=== PATIENT | male | born 1975 | race Caucasian/White ===

== ENCOUNTER 2016-11-24 07:30 | Observation (INO) | payer BC ==
[2016-11-24 07:54] VITALS: BMI 29.8
--- NOTE | 2016-11-24 08:41 | DR.GENAD ---
HPI - PCP Primary Care Physician: KAMLA - HPI Comment HPI Comment: PATIENT HAVE LEFT INGUINAL HERNIA FOR 6 MONTHS. PATIENT HAVE HAD PAIN FROM IT ON AND OFF. PAST ONE DAY, PERSISTENT PAIN. PAIN WORSE THIS AM. NAUSEA PRESENT BUT NO VOMITING, FEVER OR DYSURIA.THE HERNIA IS NOT GOING BACK IN. - Complaint/Symptoms Chief Complaint Doctors Comments: LEFT LOWER ABDOMINAL AND GROIN PAIN TIMES ONE DAY. Chief Complaint:: POSSIBLE HERNIA IN HIS LOWER LEFT ABD AREA. HAS BEEN THERE FOR 5 MONTHS HE HAS A APPOINTMENT WITH HIS FAMILY DOCTOR THIS MORNING. - Nurses notes reviewed Nurses Notes Review: Yes - Source History Provided: Patient - Mode of Arrival Mode of Arrival: Ambulatory - Timing Onset of Chief Complaint: 06/27/16 Came on: Gradually - Duration Duration: Constant Duration: Weeks - Severity Severity: Moderate PMH - PMH Past Medical History: Yes Past Medical History: Hypertension Past Surgical History: No - Family History History of Family Medical Conditions: No - Social History Does patient currently use any type of tobacco product: No Have you used tobacco products in the last 12 months: No Type of Tobacco Use: None Does any household member use tobacco: No Alcohol Use: Rarely Do you use any recreational Drugs:: No Lives With: Family Lives Where: Home - infectious screening In the last 2 months have you had wt loss of >10#?: NO Have you had fever, night sweats or hemotysis?: No Have you traveled outside the country in the last 6 months?: No Isolation: Standard ROS - Review of Systems Constitutional: No Symptoms Reported Eyes: No Symptoms Reported ENTM: No Symptoms Reported Respiratoy: No Symptoms Reported Cardiovascular: No Symptoms Reported Gastrointestinal/Abdominal: Abdominal Pain Neurological: No Symptoms Reported Musculoskeletal: No Symptoms Reported Integumentary: No Symptoms Reported Hematologic/Lymphatic: No Symptoms Reported Endocrine: No Symptoms Reported All Other Systems: Reviewed and Negative PE - Vital Signs Vitals: Temperature 98.6 F Pulse Rate 82 Respiratory Rate 16 Blood Pressure 147/90 O2 Sat by Pulse Oximetry 100 - General Limitations: No Limitations General Appearance: Alert - Head Head Exam: Normal Inspection - Eyes Eye exam: Normal Appearance - ENT ENT Exam: Normal External Ear Exam External Ear Exam: Normal External Inspection TM/Canal Exam: Bilateral Normal Nose Exam: Normal Nose Exam Mouth Exam: Normal Inspection Throat Exam: Normal Inspection - Neck Neck Exam: Trachea Midline - Chest Chest Inspection: Symmetric Chest Wall Rise - Respiratory Respiratory Exam: Normal Lung Sounds Bilat Respiratory Exam: Bilateral Clear to Auscultation - Cardiovascular Cardiovascular Exam: Regular Rate, Normal Rhythm, Normal Heart Sounds - Abdominal Exam Abdominal Exam: Normal Bowel Sounds, Soft, Tenderness Abdominal Tenderness: RLQ, Moderate - Extremities Extremities Exam: Normal Inspection - Back Back Exam: Normal Inspection - Neurologic Neurological Exam: Alert, Oriented X3 - Psychiatric Psychiatric Exam: Normal Affect, Normal Mood - Skin Skin Exam: Normal Color MDM - Additional Information Additional Information Obtained From: Family - Differential Diagnosis Differential Diagnosis: INCARCERATED LT INGUINAL HERNIA, TRANGULATED LT INGUINAL HERNIA, ABD PAIN Course - Treatment Treatment: SEE ORDERS. NS AND IV PAIN MED IN ED. - Consultation Consultation Comments: DISCUSS PATIENT WITH DR. BORJA SURGEON. - Education/Counseling Education/Counseling: Patient, Family, Education Educated On: Treatment, Diagnosis ROR - Labs Reviewed Laboratory Results Reviewed?: Yes Result Diagrams: 11/24/16 08:35 11/24/16 08:35 Laboratory: WBC 6.2 X10^3/uL (3.6-10.0) 11/24/16 08:35 RBC 4.76 X10^6/uL (4.7-6.0) 11/24/16 08:35 Hgb 13.4 g/dL (13.5-18.0) L 11/24/16 08:35 Hct 38.3 % (42.0-54.0) L 11/24/16 08:35 MCV 80.5 fL (80.0-100.0) 11/24/16 08:35 MCH 28.2 pg (27.0-34.0) 11/24/16 08:35 MCHC 35.1 g/dL (33.0-35.0) H 11/24/16 08:35 RDW 12.6 % (11.6-16.5) 11/24/16 08:35 Plt Count 237 X10^3/uL (150.0-450.0) 11/24/16 08:35 MPV 7.6 fL (7.4-11.0) 11/24/16 08:35 Neut % 60.7 % (42.0-75.0) 11/24/16 08:35 Lymph % 27.4 % (21.0-51.0) 11/24/16 08:35 [place] % 10.1 % (0.0-13.0) 11/24/16 08:35 Eos % 1.2 % (0.9-2.9) 11/24/16 08:35 Baso % 0.6 % (0.2-1.0) 11/24/16 08:35 Neut # 3.8 x10^3/uL (2.2-4.8) 11/24/16 08:35 Lymph # 1.7 X10^3/uL (1.3-2.9) 11/24/16 08:35 [place] # 0.6 x10^3/uL (0.3-0.8) 11/24/16 08:35 Eos # 0.1 x10^3/uL (0.0-0.2) 11/24/16 08:35 Baso # 0.0 X10^3/uL (0.0-0.1) 11/24/16 08:35 Absolute Nucleated RBC 0.0 /100WBC 11/24/16 08:35 Sodium 140 mmol/L (136-145) 11/24/16 08:35 Corrected Sodium 140 mmol/L (136-145) 11/24/16 08:35 Potassium 4.2 mmol/L (3.5-5.1) 11/24/16 08:35 Chloride 104 mmol/L (98-107) 11/24/16 08:35 Carbon Dioxide 29.7 mmol/L (21-32) 11/24/16 08:35 BUN 12 mg/dL (7-18) 11/24/16 08:35 Creatinine 0.86 mg/dL (0.70-1.30) 11/24/16 08:35 Est GFR (MDRD) Af Amer > 60 (>60) 11/24/16 08:35 Est GFR (MDRD) Non-Af > 60 (>60) 11/24/16 08:35 Glucose 119 mg/dL (65-99) H 11/24/16 08:35 Calcium 8.9 mg/dL (8.5-10.1) 11/24/16 08:35 Corrected Calcium TNP 11/24/16 08:35 Total Bilirubin 1.30 mg/dL (0.2-1.0) H 11/24/16 08:35 AST 26 Units/L (15-37) 11/24/16 08:35 ALT 56 Units/L (12-78) 11/24/16 08:35 Alkaline Phosphatase 42 Units/L (46-116) L 11/24/16 08:35 Total Protein 7.9 g/dL (6.4-8.2) 11/24/16 08:35 Albumin 4.0 g/dL (3.4-5.0) 11/24/16 08:35 Globulin 3.9 g/dL (2.5-4.5) 11/24/16 08:35 Albumin/Globulin Ratio 1.0 Ratio (1.1-2.1) L 11/24/16 08:35 Specimen Type Clean catch urine 11/24/16 08:52 Urine Color Yellow (YELLOW) 11/24/16 08:52 Urine Appearance Clear (CLEAR) 11/24/16 08:52 Urine pH 6.0 (5.0 - 8.0) 11/24/16 08:52 Ur Specific [place] 1.015 (1.000-1.030) 11/24/16 08:52 Urine Protein Negative (NEGATIVE) 11/24/16 08:52 Urine Glucose (UA) Negative (NEGATIVE) 11/24/16 08:52 Urine Ketones Negative (NEGATIVE) 11/24/16 08:52 Urine Occult Blood Negative (NEGATIVE) 11/24/16 08:52 Urine Nitrite Negative (NEGATIVE) 11/24/16 08:52 Urine Bilirubin Negative (NEGATIVE) 11/24/16 08:52 Urine Urobilinogen Normal (NORMAL) 11/24/16 08:52 Ur Leukocyte Esterase 1+ (NEGATIVE) 11/24/16 08:52 Urine RBC 0-2 /HPF (NEGATIVE) 11/24/16 08:52 Urine WBC 0-2 /HPF (NEGATIVE) 11/24/16 08:52 Ur Squamous Epith Cells Negative /HPF (NEGATIVE) 11/24/16 08:52 Urine Bacteria Trace /HPF (NEGATIVE) 11/24/16 08:52 Ur Culture Indicated? No/not indicated 11/24/16 08:52 - XRAY XRAY Interpreted by: Radiologist XRAY Findings: REPORT DISCUSS WITH PATIENT. - Diagnosis Discharge Problem: Incarcerated left inguinal hernia - Discharge Plan Condition: Stable - Follow ups/Referrals - Instructions
[2016-11-24 08:45] LABS: BASOPHILS % (AUTO) 0.6 % (0.2-1.0); EOSINOPHILS # (AUTO) 0.1 x10^3/uL (0.0-0.2); EOSINOPHILS % (AUTO) 1.2 % (0.9-2.9); HEMATOCRIT 38.3 % (42.0-54.0); HEMOGLOBIN 13.4 g/dL (13.5-18.0); LYMPHOCYTES # (AUTO) 1.7 X10^3/uL (1.3-2.9); LYMPHOCYTES % (AUTO) 27.4 % (21.0-51.0); MEAN CORPUSCULAR HEMOGLOBIN 28.2 pg (27.0-34.0); MEAN CORPUSCULAR HGB CONC 35.1 g/dL (33.0-35.0); MEAN CORPUSCULAR VOLUME 80.5 fL (80.0-100.0); MEAN PLATELET VOLUME 7.6 fL (7.4-11.0); MONOCYTES # (AUTO) 0.6 x10^3/uL (0.3-0.8); MONOCYTES % (AUTO) 10.1 % (0.0-13.0); NEUTROPHILS # (AUTO) 3.8 x10^3/uL (2.2-4.8); NEUTROPHILS % (AUTO) 60.7 % (42.0-75.0); PLATELET COUNT 237 X10^3/uL (150.0-450.0); RED BLOOD COUNT 4.76 X10^6/uL (4.7-6.0); RED CELL DISTRIBUTION WIDTH 12.6 % (11.6-16.5); WHITE BLOOD COUNT 6.2 X10^3/uL (3.6-10.0)
[2016-11-24 08:57] LABS: ALANINE AMINOTRANSFERASE 56 Units/L (12-78); ALKALINE PHOSPHATASE 42 Units/L (46-116); ASPARTATE AMINO TRANSFERASE 26 Units/L (15-37); BLOOD UREA NITROGEN 12 mg/dL (7-18); CALCIUM 8.9 mg/dL (8.5-10.1); CARBON DIOXIDE 29.7 mmol/L (21-32); CHLORIDE 104 mmol/L (98-107); COR NA(FOR HYPERGLY) 140 mmol/L (136-145); CREATININE 0.86 mg/dL (0.70-1.30); GLUCOSE 119 mg/dL (65-99); SODIUM 140 mmol/L (136-145); TOTAL PROTEIN 7.9 g/dL (6.4-8.2); eGFR BLACK RACES > 60 (>60); eGFR NON BLACK RACES > 60 (>60)
[2016-11-24 09:09] LABS: BILIRUBIN,URINE NEGATIVE (NEGATIVE); BLOOD/HEMOGLOBIN,URINE NEGATIVE (NEGATIVE); GLUCOSE, URINE NEGATIVE (NEGATIVE); KETONES,URINE NEGATIVE (NEGATIVE); LEUKOCYTE ESTERASE ,URINE 1+ (NEGATIVE); NITRITES,URINE NEGATIVE (NEGATIVE); PROTEIN,URINE NEGATIVE (NEGATIVE); UROBILINOGEN,URINE NORMAL (NORMAL)
[2016-11-24 09:17] LABS: APPEARANCE,URINE CLEAR (CLEAR); COLOR,URINE YELLOW (YELLOW)
[2016-11-24 09:18] LABS: BACTERIA,URINE TRACE /HPF (NEGATIVE); RBC,URINE 0-2 /HPF (NEGATIVE); SQUAMOUS EPITHELIAL CELL,UR NEGATIVE /HPF (NEGATIVE)
--- NOTE | 2016-11-24 11:26 | CT ---
HISTORY: Abdominal pain, testicular pain Study: CT abdomen pelvis without contrast Comparison: None Technique: Axial non contrast images with coronal and sagittal reformats. Dose reduction procedures were used with MA/kv adjusted for body size. The examination is limited by the lack of intravenous c ontrast. Findings: The lung bases are clear. The liver, spleen, adrenal glands, and pancreas are within normal limits t o the limitations of an unenhanced examination. No opaque stones are visible within the gallbladder. The kidneys are unobstructed and without stones. No ureteral calculi are identified. No significant intraperitoneal or retroperitoneal lymphadenopathy is identified. The appendix is normal. There are no findings suggestive of diverticulitis or colitis. Examination of the pelvis demonstrated no evid ence for pelvic masses, pelvic fluid, or pelvic lymphadenopathy. There is a moderately large left in guinal hernia containing a loop of sigmoid colon which demonstrates some luminal compromise as it pa sses through the orifice of the hernia. Incarceration should be clinically excluded. There is no ramandeep dence for strangulation. No bladder abnormality is identified. No significant skeletal abnormality i s identified. IMPRESSION: No evidence for obstructing renal or ureteral calculi Left inguinal hernia containing a loop of sigmoid colon which demonstrates some mild luminal comprom ise as it passes through the orifice of the hernia. Incarceration should be clinically excluded. Reported By:
[2016-11-24] MEDS ORDERED: DEMEROL INJ IVP ONE (11:36)
[2016-11-24] MEDS ORDERED: ZOFRAN INJ 4 MG VIAL IVP ONE (11:36)
[2016-11-24] MEDS ORDERED: NS 1000 ML 1,000 ML IV ONE (11:36)
[2016-11-24] MEDS ORDERED: ZOFRAN INJ 4 MG VIAL ONE ×2 (11:45→14:00)
[2016-11-24] MEDS ORDERED: DEMEROL INJ ONE (11:46)
[2016-11-24] MEDS ORDERED: NS 1000 ML 1,000 ML ONE (11:54)
[2016-11-24] MEDS ORDERED: DEMEROL INJ IVP PRN (13:33)
[2016-11-24] MEDS ORDERED: ZOFRAN INJ 4 MG VIAL IVP PRN ×2 (13:33→17:23)
[2016-11-24] MEDS ORDERED: NS 50 ML IV + SPIKE MINIBAG* 50 ML IV ONE ×2 (13:34→14:16)
[2016-11-24] MEDS ORDERED: ANCEF VIAL 1 GM ONE ×2 (13:34→14:17)
[2016-11-24] MEDS ORDERED: VERSED ONE (14:00)
[2016-11-24] MEDS ORDERED: XYLOCAINE 2 % (PLAIN) ONE (14:00)
[2016-11-24] MEDS ORDERED: DIPRIVAN VIAL ONE (14:00)
[2016-11-24] MEDS ORDERED: QUELICIN (OR ANECTINE) ONE (14:00)
[2016-11-24] MEDS ORDERED: SUPRANE IN ONE (14:00)
[2016-11-24] MEDS ORDERED: NEOSTIGMINE INJ ONE (14:00)
[2016-11-24] MEDS ORDERED: REGLAN INJ 10 MG VIAL ONE (14:00)
[2016-11-24] MEDS ORDERED: ROBINUL ONE (14:00)
[2016-11-24] MEDS ORDERED: NORCURON INJ 10 MG VIAL ONE (14:00)
[2016-11-24] MEDS ORDERED: FENTANYL INJ 250 mcg ONE (14:10)
[2016-11-24] MEDS: LR 1000 ML IV 1,000 ML IV SCH ×3 (14:14→18:15)
[2016-11-24] MEDS ORDERED: XYLOCAINE 1% and EPINEPHRINE 1:100,000 ONE (14:41)
[2016-11-24] MEDS ORDERED: MARCAINE 0.25% INJ ONE (14:41)
[2016-11-24] MEDS ORDERED: NS IRRIGATION 1000 ML 500 ML IR ONE (15:03)
[2016-11-24] MEDS ORDERED: DILAUDID INJ IVP PRN (17:18)
[2016-11-24] MEDS ORDERED: PERCOCET TAB 5/325 MG PO PRN (17:18)
[2016-11-24] MEDS ORDERED: BENADRYL INJ 50 MG VIAL IVP PRN (17:23)
[2016-11-24] MEDS ORDERED: PHENERGAN INJ 25 MG IVP PRN (17:23)
[2016-11-24] MEDS ORDERED: REGLAN INJ 10 MG VIAL IVP PRN (17:23)
[2016-11-24] MEDS: DILAUDID INJ IVP PRN ×3 (17:30→17:40)
[2016-11-24] MEDS ORDERED: DILAUDID INJ ONE (17:31)
[2016-11-24] MEDS: TORADOL 30 MG VIAL IVP PRN (21:34)
[2016-11-25] MEDS: LR 1000 ML IV 1,000 ML IV SCH ×3 (02:11→09:30)
[2016-11-25 06:15] LABS: BASOPHILS % (AUTO) 0.3 % (0.2-1.0); EOSINOPHILS % (AUTO) 0.1 % (0.9-2.9); HEMATOCRIT 33.2 % (42.0-54.0); HEMOGLOBIN 11.8 g/dL (13.5-18.0); LYMPHOCYTES # (AUTO) 1.6 X10^3/uL (1.3-2.9); MEAN CORPUSCULAR HEMOGLOBIN 28.7 pg (27.0-34.0); MEAN CORPUSCULAR HGB CONC 35.4 g/dL (33.0-35.0); MEAN PLATELET VOLUME 8.2 fL (7.4-11.0); MONOCYTES # (AUTO) 0.8 x10^3/uL (0.3-0.8); MONOCYTES % (AUTO) 9.8 % (0.0-13.0); NEUTROPHILS % (AUTO) 70.8 % (42.0-75.0); PLATELET COUNT 212 X10^3/uL (150.0-450.0); RED CELL DISTRIBUTION WIDTH 12.7 % (11.6-16.5); WHITE BLOOD COUNT 8.5 X10^3/uL (3.6-10.0)
[2016-11-25] MEDS: TORADOL 30 MG VIAL IVP PRN (06:39)
[2016-11-25 07:20] LABS: ALANINE AMINOTRANSFERASE 43 Units/L (12-78); ALBUMIN 3.3 g/dL (3.4-5.0); ALKALINE PHOSPHATASE 29 Units/L (46-116); ASPARTATE AMINO TRANSFERASE 20 Units/L (15-37); BLOOD UREA NITROGEN 13 mg/dL (7-18); CALCIUM 8.4 mg/dL (8.5-10.1); CHLORIDE 103 mmol/L (98-107); CREATININE 0.96 mg/dL (0.70-1.30); GLUCOSE 106 mg/dL (65-99); SODIUM 140 mmol/L (136-145); TOTAL PROTEIN 6.8 g/dL (6.4-8.2); eGFR BLACK RACES > 60 (>60); eGFR NON BLACK RACES > 60 (>60)
[2016-11-25 08:55] VITALS: BP 108/66
[2016-11-25] MEDS ORDERED: AZILSARTAN MEDOXOMIL PO SCH (09:00)
--- NOTE | 2016-11-25 09:50 | DR.H&P ---
H&P - History & Physical for Day of: H&P Date: 11/24/16 - Chief Complaint Chief Complaint: abdominal pain - Allergies Allergies/Adverse Reactions: Allergies Allergy/AdvReac Type Severity Reaction Status Date / Time No Known Drug Allergies Allergy Verified 11/24/16 07:32 - History of Present Illness History of Present Illness: Patient has had inguinal hernia for the last 6 months, and had worsened pain today, pateint admitted and dr. hernandez consulted. - Past Medical History Past Medical History: Hypertension - Social History Does patient currently use any type of tobacco product: No Have you used tobacco products in the last 12 months: No Type of Tobacco Use: None Does any household member use tobacco: No Alcohol Use: Rarely Drug Use: None - Medications Home Medications: Azilsartan Medoxomil [Edarbi] 20 mg PO DAILY 11/24/16 [History Confirmed ] - Review of Systems Constitutional: No Symptoms Reported Eyes: No Symptoms Reported ENT: No Symptoms Reported Respiratory: No Symptoms Reported Cardiovascular: No Symptoms Reported Gastrointestinal: Nausea, Vomiting, Abdominal Pain Genitourinary: No Symptoms Reported Musculoskeletal: No Symptoms Reported Skin: No Symptoms Reported Neurological: No Symptoms Reported - Physical Exam Vital Signs: Temperature 99.5 F Pulse Rate [Left Brachial] 71 Pulse Rate 84 Respiratory Rate 16 Blood Pressure [Right Arm] 108/66 Blood Pressure [Left Arm] 112/56 Blood Pressure 143/66 O2 Sat by Pulse Oximetry 95 Oriented: Normal Eyes: Normal Ear: Normal Nose: Normal Throat: Normal Respiratory: Clear Throughout Cardiovascular: Normal : Normal Auscultation: Bowel Sounds: Normal Palpation: Normal Tenderness: Diffuse Skin: Normal Musculoskeletal: Normal Psychiatric: Normal Mood Description: Calm, Appropriate Affect: Normal Speech Pattern: Clear, Appropriate - Assessment/Plan (1) Incarcerated left inguinal hernia Status: Acute Plan: consult dr. hernandez
--- NOTE | 2016-12-10 09:30 | OR.GENERIC ---
Post-Op Note Generic - Post-Op Note Operative Report: Date of Operation: November 24, 2016 Pre-Operative Diagnosis: Incarcerated left inguinal hernia. Post-Operative Diagnosis: Incarcerated left indirect inguinal hernia. Procedure: Open left inguinal hernia repair with mesh (plug and patch). Surgeon: Antwon Martin MD. Secretary: Jamila Kumari CRNA. Specimens: None. Estimated blood loss: Minimal. Complications: None. Summary: The patient is a 41 year old male who presented with an incarcerated left inguinal hernia. The patient was offered inguinal hernia repair. The risk and benefits of the procedure including difficulty with anesthesia, bleeding, infection, injury to intraabdominal contents requiring further surgery, recurrence, nerve injury, injury to cord structures requiring orchiectomy, DVT, as well as PE were discussed with the patient. The patient understood these risks and requested the procedure. On November 24, 2016, the patient was brought to the operative theatre. A time out was performed verifying the patient and procedure. The patient received Ancef for pre-operative antibiosis. After satisfactory induction of general endotracheal anesthesia, the abdomen and groin were prepped with Chloraprep and draped in the usual sterile fashion. Local anesthetic was infiltrated one fingerbreadth medial and inferior to the left anterior superior iliac spine ( ASIS). Next the skin between the pubic tubercle and the ASIS was anesthetized using local and incised with a scalpel. The incision was carried through the subcutaneous tissue and Scarpas fascia using electrocautery. The external oblique fibers were cleared bluntly. Local was injected under the oblique fibers. The external oblique was nicked with a scalpel and divided using Metzenbaum scissors taking care to avoid nerves. The external obliques were mobilized using blunt dissection. The cord structures were encircled at the pubic tubercle and a samir placed around the cord. A large hernia sac was bluntly dissected away from the cord structures. The hernia sac was opened and the peritoneal contents placed back inside the abdomen. The redundant sac was removed using electrocautery. The hernia sac was closed using a 0-Vicryl purse string. A mesh plug was placed beside the cord in the internal ring and tacked into position with 0-Vicryl sutures. A Prolene mesh was fashioned to fit the inguinal floor. The apex of the mesh was anchored to the periosteum at the pubic tubercle with a 2-0 Prolene suture. The superior portion of the mesh was attached to the conjoined tendon using interrupted 2-0 Prolene sutures. The inferior portion of the mesh was sutured to the shelving portion of the inguinal ligament using interrupted 2-0 Prolene sutures. The external oblique fibers were re-approximated using a running 2-0 Vicryl suture. The wound was irrigated. Bleeding was controlled using electrocautery. Scarpas fascia was re-approximated using interrupted 3-0 Vicryl sutures. The dermis was re- approximated using inverted, interrupted 3-0 Vicryl sutures. The skin edges were re-approximated using a running 4-0 Monocryl stitch. Benzoin and Steri- strips were placed. Sterile dressings were placed. The left testicle was palpated in the scrotum. The patient was awakened and taken to the recovery room in stable condition. There were no complications. All counts were correct.
== END 2016-11-25 11:50 | disposition home or self-care (01) | DRG 352 ==
LOC: ER 07:30 → MED/SURG 13:28 → INTOOBSV 13:28
PROVIDERS: ADMIT Obstetrics & Gynecology Obstetrics; ATTEND Internal Medicine
PROC: 0YU60JZ Supplement Left Inguinal Region with Synthetic Substitute, Open Approach (ICD-10-PCS; principal; 2016-11-24 14:00)
DX: K40.30 Unilateral inguinal hernia, with obstruction, without gangrene, not specified as recurrent (principal); I10 Essential (primary) hypertension; R10.84 Generalized abdominal pain; D64.89 Other specified anemias
CPT/HCPCS: 36415; 74176; 80053; 81001; 85025; 96365; 96374; 96375; 99284; A4216; A4222; S0020; G0378; J0330; J0690; J1170; J1885; J2001; J2175; J2250; J2405; J2710; J2765; J3010; J3490; J7120